=== PATIENT | female | born 1980 | race Caucasian/White ===

== ENCOUNTER → 2020-02-06 | Outpatient (CLI) | payer OTHER, SELFPAY | END | disposition home or self-care (01) | PROVIDERS: PCP Family Medicine; Referring Provider Family Medicine; Visit Provider Family Medicine | DX: Z03.818 Encounter for observation for suspected exposure to other biological agents ruled out (principal) | CPT/HCPCS: 87635; G2023; U0004 ==

== ENCOUNTER → 2022-12-28 | Outpatient (CLI) | payer SELFPAY ==
--- NOTE | 2022-12-28 09:54 | BI_ITS ---
MAMMOGRAPHY - BILATERAL SCREENING REASON FOR EXAM: Female, 42 years old. Routine annual screening examination. PERTINENT HISTORY: Non-contributory. TECHNIQUE: Digital bilateral breast myesha (3D mammographic acquisition) in the CC and MLO projections. 2-D mediolateral oblique (MLO) and craniocaudad (CC) views of both breasts were obtained. CAD: Full Field Digital Mammography with Computer Added Detection was performed. COMPARISON: None. Baseline examination. FINDINGS: Breast Composition: The breasts are extremely dense, which lowers the sensitivity of mammography. There are no dominant masses or suspicious calcifications. No other significant abnormalities are identified. BI/SCRN MAMM (CAD)W/MYESHA BILAT IMPRESSION: Negative screening mammogram. Yearly followup mammogram recommended. (A) ASSESSMENT CATEGORY: BIRADS Category 1: Negative. A letter regarding these results will be sent to the patient by the facility within 30 days. Approximately 10% of breast cancers are not detected by mammography. A normal mammogram should not delay biopsy of a clinically suspicious abnormality. [id number] Electronically Signed: Victorino Wheat MD at 11:14 EDT ,
== END | disposition home or self-care (01) ==
PROVIDERS: PCP Nurse Practitioner Family; Referring Provider Advanced Practice Midwife; Visit Provider Advanced Practice Midwife
DX: Z12.31 Encounter for screening mammogram for malignant neoplasm of breast (principal)
CPT/HCPCS: 77063; 77067

== ENCOUNTER 2025-03-30 04:26 | Emergency (ER) | payer OTHER, SELFPAY ==
[2025-03-30 04:27] VITALS: BP 133/105; PULSE 88; RESP 16; TEMP 37; O2SAT 98; BMI 28.1
--- NOTE | 2025-03-30 04:48 | CT_ITS ---
PROCEDURE: ABDOMEN/PELVIS WITH CONTRAST 03/30/2025 REASON FOR EXAM: RIGHT UPPER QUAD ABDOMINAL PAIN TECHNIQUE: ABDOMEN/PELVIS WITH CONTRAST Coronal and Sagittal reconstruction series were provided. CONTRAST: Isovue 370 VOLUME: 100 mL Oral contrast material was also administered. One or more dose reduction techniques were used (e.g., Automated exposure control, adjustment of the mA and/or kV according to patient size, use of iterative reconstruction technique. RADIATION DOSE SUMMARY: DLP: 700 mGycm COMPARISON: None. FINDINGS: Lung bases: Bibasilar atelectasis. Liver: The liver is normal in size without suspicious hepatic mass. The major portal veins are patent. Minimal biliary ductal dilation. Gallbladder: Marked gallbladder distention with layering dependent stones. There is pericholecystic fluid. Spleen: Normal in size. Pancreas: Unremarkable. No pancreatic ductal dilation. Adrenals: No adrenal mass. Kidneys: No hydronephrosis or nephrolithiasis. Bladder: Distended and unremarkable. Reproductive Organs: Mildly enlarged, globular uterus. Unremarkable ovaries. Bowel: Oral contrast material opacifies the distal small bowel and proximal colon. The bowel loops are nondilated. No ascites or pneumoperitoneum. Normal appendix. Lymph nodes: No suspicious lymph node enlargement. Vasculature: The abdominal aorta and IVC are normal. Bones: Minimal thoracolumbar spondylosis. CT/Abdomen/Pelvis WITH Contrast IMPRESSION: Acute cholecystitis. Reading Location: [id number]
[2025-03-30 05:00] LABS: Hematocrit 36.7 % (37-47); Hemoglobin 13.2 g/dL (12.0-15.0); Immature Granulocytes Count 0.010 X10^3/uL (0.0-0.0); Mean Corp Hgb Conc 36.0 g/dL (32-36); Mean Corpuscular Volume 87.4 fL (81-99); Mean Platelet Vol. 8.7 fl (6.2-12.0); NRBC Flagged by Analyzer 0 % (0-5); Platelet Count 254 K/mm3 (150-450); RBC Distribution Width CV 12.0 % (11.6-14.6); RBC Distribution Width SD 38.6 fl (35.1-43.9); Red Blood Count 4.20 M/mm3 (4.2-5.4); White Blood Count 6.4 K/mm3 (4.4-11.0)
--- NOTE | 2025-03-30 05:00 | EX.ED.DYSGE1 ---
HPI History of Present Illness Chief Complaint: Abd Pain Narrative Narrative: Chief complaint and HPI: Right upper quadrant abdominal pain. 45-year-old female with past medical history of biliary colic and cholelithiasis presents for evaluation of right upper quadrant abdominal pain. Patient states that she has had multiple episodes of biliary colic in the past. States she had an outpatient ultrasound that showed cholelithiasis. She has not followed up with a general surgeon. Patient states yesterday she ate pizza. 2 hours later developed right upper quadrant abdominal pain. Associated symptoms nausea. Patient states pain improved on transit to the emergency department. She denies any fever, chills, shortness of breath, chest pain, vomiting. Review of systems: See HPI Medications: As listed on the chart Allergies: As listed on the chart PFSH: Per chart Vital signs: As listed on the chart. Reviewed. Physical exam: Gen: A&O x3, NAD Head: Normocephalic, atraumatic Eyes: No sclera icterus, conjunctiva clear ENT: Moist mucous membranes Neck: Trachea midline, No JVD CV: RRR, no murmurs, no peripheral edema Resp: Lungs CTA BL, no w/r/c GI: Abd soft, non-distended, tender to palpation in the right upper quadrant, negative Tran sign, no r/r Musc: Full ROM, no deformity Skin: Warm, dry Neuro: Alert, oriented, grossly intact, sensation intact Psych: Cooperative, appropriate mood and affect [facility] Medical History (Updated 03/30/25 @ 07:[address] Elmer Lambert, DO) Anxiety Home Medications ?Medication ?Instructions ?Recorded ?Last Taken ?Type sertraline 50 mg tablet (Zoloft) 50 mg PO DAILY 03/30/25 Unknown History Allergy/AdvReac Type Severity Reaction Status Date / Time No Known Allergies Allergy Verified 03/30/25 04:32 Social History Smoking Status: Never smoker EXAM Physical Exam Const Vital Signs: 03/30/25 04:27 03/30/25 05:50 03/30/25 06:22 Temperature 98.6 F Temperature Source Oral Pulse Rate 88 70 96 Respiratory Rate 16 16 16 Blood Pressure 133/105 H 144/88 H 136/86 H Blood Pressure Mean 114 106 102 Pulse Ox 98 100 100 Oxygen Delivery Method Room Air Room Air Room Air MDM MDM MDM Narrative Medical decision making narrative: 45-year-old female with past medical history of biliary colic and cholelithiasis presents for evaluation of right upper quadrant abdominal pain. Has a past medical history of biliary colic and cholelithiasis. Differential diagnosis includes but is not limited to cholelithiasis, biliary colic, acute cholecystitis, cholangitis, pancreatitis. Patient states her pain has improved prior to arrival. She declined pain and nausea medicine. Although ultrasound is the best test to assess for gallbladder pathology I do not have that is available in our emergency department therefore CT abdomen pelvis will be ordered with laboratory workup. CBC without leukocytosis or anemia. Platelets unremarkable. BMP unremarkable. Hepatic panel unremarkable. Lipase unremarkable. CT abdomen pelvis pending at this time. Patient signed out to oncoming physician, Dr. Patton. He will wait results. Impression: 1. Right upper quadrant abdominal pain 2. History of cholelithiasis with biliary colic Lab Data Labs: Laboratory Results - last 24 hr 03/30/25 04:30 WBC 6.4 RBC 4.20 Hgb 13.2 Hct 36.7 L MCV 87.4 MCH 31.4 MCHC 36.0 RDW Std Deviation 38.6 RDW Coeff of Nikhil 12.0 Plt Count 254 MPV 8.7 Immature Gran % (Auto) 0.200 Neut % (Auto) 68.4 Lymph % (Auto) 19.2 [place] % (Auto) 10.8 H Eos % (Auto) 1.1 Baso % (Auto) 0.3 Absolute Neuts (auto) 4.4 Absolute Lymphs (auto) 1.22 Nucleated RBC % 0 Sodium 136 Potassium 3.6 Chloride 101 Carbon Dioxide 23.5 Anion Gap 11 BUN 12 Creatinine 0.81 Estim Creat Clear Calc 80.28 Est GFR (MDRD) Non-Af 91 BUN/Creatinine Ratio 14.5 Glucose 110 H Calcium 9.5 Total Bilirubin 0.26 Direct Bilirubin 0.12 AST 25 ALT 12 Alkaline Phosphatase 52 Total Protein 7.4 Albumin 4.4 Globulin 3.0 Lipase 39 Discharge Plan Triage Chief Complaint: Abd Pain ED Provider: Elmer Lambert Dx/Rx/DC Orders Clinical Impression: Cholelithiasis, Biliary colic Instructions: ED Gallstones with Biliary Colic Prescriptions: No Action sertraline [Zoloft] 50 mg tablet 50 mg PO DAILY Primary Care Provider: Erika Crowell MAKEUP ARTISTRY INSTRUCTOR Referrals: Chetan Dempsey MD [Med Staff - Active Staff] - 3-5 Days Racquel Carolina NP-C [Non-Staff] - 3-5 Days Activity Restrictions/Additional Instructions: Refrain from fatty, fried, spicy foods. Follow-up with general surgery and primary care physician. Return back to the ED if symptoms change or worsen. Print Language: Turkmen Disposition Disposition: Home, Self Care
[2025-03-30] MEDS: 0.9% Normal Saline (1000mL) 1,000 ML 999 ML IV (05:01)
[2025-03-30 05:24] LABS: AST(SGOT) 25 U/L (<=31); Alanine Aminotransfer ALT/SGPT 12 U/L (<=34); Albumin, Serum 4.4 g/dL (3.5-5.0); Alkaline Phosphatase 52 U/L (35-104); Anion Gap 11 (5-15); BUN 12 mg/dL (4-19); BUN/Creat Ratio 14.5 RATIO (10-20); Bilirubin, Direct 0.12 mg/dL (0.00-0.30); Calcium,Total 9.5 mg/dL (7.6-11.0); Carbon Dioxide 23.5 mmol/L (21.0-32.0); Chloride 101 mmol/L (98-108); Estimated Creatinine Clearance 80.28 ml/min (50-250); Globulin 3.0 g/dL (2.2-4.2); Glucose 110 mg/dL (70-99); Lipase 39 U/L (13-75); Potassium 3.6 mmol/L (3.3-5.1)
--- OUTSIDE RECORDS SUMMARY | 2025-03-30 05:39 | XMS RPT_ITS | CCD ---
Author Organization [facility] Care Team Providers Care Recordist Name Role Phone Dr. Alf Ferrell Primary Care Provider [phone] Dr. Alf Ferrell Referring Provider CORINNE Sheets Attending Provider Alf Ferrell Referring Unavailable Alf Ferrell Primary Care Unavailable Verónica Sheets Attending Unavailable Racquel Carolina Primary Care Unavailable Verónica Sheets Referring Unavailable Verónica Sheets Attending Unavailable Problems Problem Classification Problem Date Documented Da te Episodic/Chronic Other screening for suspected conditions (not mental disorders or infectious disease) (4 sources) Patient encounter status; Translations: [Encounter for other screening for malignant neoplasm of breast] Onset: 01-03-2023 12-28-2022 Episodic Results Test Name Value Interpretation Reference Range Facil ity Manager Purchasing Office Visit Reporton 12-28-2022 Manager Purchasing Office Visit Report [facility] [address] [place], [place] [address] OFFICE VISIT Date of Service: 12/28/22 MR#: [id number] Acct: [id number] Name: CHINYERE ESTEBAN Rep #: [id number] : 1980 Provider: CORINNE French ams Age/Sex: 42/F Location: [facility] Status: Signed Intake Intake Visit Reasons: MAMM EVENT HPI MAMM EVENT Details: CHINYERE ESTEBAN is a 42 year old who presents for mammogram screening ROS Const Constitutional: Reports system reviewed and no additional complaints, except as documented Resp Resp: Reports system reviewed and no additional complaints, except as documented GI GI: Reports system reviewed and no additional complaints, except as documented : Reports system reviewed and no additional complaints, except as documented Musc Musc: Reports system reviewed and no additional complaints, except as documented Skin Skin/Breast: Reports system reviewed and no additional complaints, except as documented Psych Psych: Reports system reviewed and no additional complaints, except as documented Exam Const General: cooperative, healthy appearing and comfortable Neck Neck: normal visual inspection and full ROM Chest Chest palpation inspection: normal inspection of the chest and normal palpation of entire chest wall Breast inspection: normal inspection of the breasts and normal inspection of the axillae Breast palpation: normal palpation of the breasts and normal palpation of the axillae Resp Effort Inspection: normal respiratory effort and able to speak in complete sentences Psych Appearance: grossly normal Mental Status: mental status grossly normal Mood: congruent mood Affect: normal affect Coding Level of Care Code Attention Industrial Analyst Diagnoses Screening breast examination Z12.39 Assessment and Plan Assessment and Plan (1) Screening breast examination: Status: Acute Orders: Orders SCRN MAMM (CAD)W/MYESHA BILAT Today Z12.39 - Encounter for other screening for malignant neoplasm of breast 12/28/22 0950 Date Verónica Sheets CNM Cosigner Signature: Date (if applicable) CC: Normal [facility] SCRN MAMM (CAD)W/MYESHA BILATo n 12-28-2022 SCRN MAMM (CAD)W/MYESHA BILAT [facility] Imaging Services [address] [place] [address] SCRN MAMM (CAD)W/MYESHA BILAT MR#: [id number] Acct: [id number] Name: CHINYERE ESTEBAN Rep #: [id number] : 1980 F 42 From: Victorino klein MD PCP: DEBRA Vernon Status: REG CLI Study: SCRN MAMM (CAD)W/MYESHA BILAT Date of Exam: 12/11 05/04 Exam# [id number] Ordering Dr: Verónica Sheets CNM MAMMOGRAPHY - BILATERAL SCREENING REASON FOR EXAM: Female, 42 years old. Routine annual screening examination. PERTINENT HISTORY: Non-contributory. TECHNIQUE: Digital bilateral breast myesha (3D mammographic acquisition) in the CC and MLO projections. 2-D mediolateral oblique (MLO) and craniocaudad (CC) views of both breasts were obtained. CAD: Full Field Digital Mammography with Computer Added Detection was performed. COMPARISON: None. Baseline examination. FINDINGS: Breast Composition: The breasts are extremely dense, which lowers the sensitivity of mammography. There are no dominant masses or suspicious calcifications. No other significant abnormalities are identified. BI/SCRN MAMM (CAD)W/MYESHA BILAT IMPRESSION: Negative screening mammogram. Yearly followup mammogram recommended. (A) ASSESSMENT CATEGORY: BIRADS Category 1: Negative. A letter regarding these results will be sent to the patient by the facility within 30 days. Approximately 10% of breast cancers are not detected by mammography. A normal mammogram should not delay biopsy of a clinically suspicious abnormality. [id number] Electronically Signed: Victorino Wheat MD at 11:14 EDT , CC: CORINNE Sheets; DEBRA Carolina Tractor Expert: Signed Normal [facility] Encounters Encounter Date Encounter Type Care Provider Facility Start: 12-28-2022 End: 12-28-[address] Alf Ferrell Work Phone: [facility] Start: 12-28-2022 End: 12-29-[address] Alf Ferrell Work Phone: [facility] Work Phone: Start: 12-28-2022 End: 12-28-[address] Alf Ferrell Work Phone: [facility] Procedures Date Procedure Procedure Detail Performing Clinician Start: 12-28-2022 Screening mammography Юлия Ferrell Work Phone: Payers Date Payer Category Payer Unknown 2022 Self-pay [id number] 2022 Unknown 0 [id number] 1 Unknown [facility] . [id number] d Unknown [id number] Unknown [id number] Social History Date Type Detail Facility Tobacco smoking stat [facility] Unknown if ever smoked [facility] Work Phone: Start: 1980 Sex Assigned At Female W [facility] Evaluation note Note Date & Type Note Facility Evaluation note Diagnosis Onset Date Screening breast examination acute [facility] Work Phone: Chief Complaint and Reason for Visit Chief Complaint MAMM EVENT SCREENING Reason for Visit Screening breast exa mination Summary Purpose Family History No Family History Records Found Advance Directives No Advanced Directives Records Found Additional Source Comments Care Teams (unrecognized sec tion and content) Team Status: Active Member Role Status Dates DEBRA Vernon Primary Care Provider Active Team Status: Inactive Member Role Status Dates Dr. Alf Ferrell , Primary Care Provider, Referring Provider Active Verónica Sheets CNM Attending Provider Active Team Status: Inactive Member Role Status Dates DEBRA Vernon Primary Care Provider Active Verónica Sheets CNM Attending Provider, Referring Pro vider Active Goals (unrecognized section and content) Goals may be documented in a n alternate section INFORMATION SOURCE (unrecogn ized section and content) DATE CREATED AUTHOR 01/21/2023 [facility] FOR RECORDS PERTAINING TO PATIENTS WHO ARE OR HAVE BEEN ENROLLED IN A CHEMICAL DEPENDENCY/SUBSTANCEABUSE PROGRAM, SOME INFORMATION MAY BE OMITTED. This clinical summary was aggregated from multiple sources. Caution should be exercised in using it in the provision of clinical care. This summary normalizes information from multiple sources, and as a consequence, information in this document may materially change the coding, format and clinical context of patient data. In addition, data may be omitted in some cases. CLINICAL DECISIONS SHOULD BE BASED ON THE PRIMARY CLINICAL RECORDS. [facility]. provides no warranty or guarantee of the accuracy or completeness of information in this document.
[2025-03-30 05:50] VITALS: BP 144/88; PULSE 70; RESP 16; O2SAT 100
[2025-03-30 06:22] VITALS: BP 136/86; PULSE 96; RESP 16; O2SAT 100
[2025-03-30 08:00] VITALS: BP 120/71; PULSE 85; RESP 16
[2025-03-30 08:46] VITALS: BP 123/77; PULSE 77; RESP 16; TEMP 36.3; O2SAT 99
== END 2025-03-30 08:46 | disposition home or self-care (01) ==
PROVIDERS: Emergency Provider Surgery; PCP Nurse Practitioner Family; Visit Provider Surgery
DX: R10.11 Right upper quadrant pain (principal); K80.50 Calculus of bile duct without cholangitis or cholecystitis without obstruction; K80.20 Calculus of gallbladder without cholecystitis without obstruction; F41.9 Anxiety disorder, unspecified; Z79.899 Other long term (current) drug therapy
CPT/HCPCS: 74177; 80048; 80076; 83690; 85025; 96360; 99283; Q9967; A4216

== ENCOUNTER 2025-04-08 10:31 | Day surgery (SDC) | payer SELFPAY, OTHER ==
[2025-04-08] VITALS (10 sets, daily range): BP systolic 102–162; BP diastolic 59–111; PULSE 83–97; RESP 14–16; TEMP 36.1–37.2; O2SAT 92–100; BMI 27.0
--- NOTE | 2025-04-08 10:46 | EKG12_ITS ---
Test Reason : PREOP Blood Pressure : */* mmHG Vent. Rate : 91 BPM Atrial Rate : 91 BPM P-R Int : 140 ms QRS Dur : 86 ms QT Int : 346 ms P-R-T Axes : 44 50 11 degrees QTcB Int : 425 ms Normal sinus rhythm Normal ECG No previous ECGs available Confirmed by AGUEDA GARRIDO, CAROLA ([id number]), loan expeditor ABEBA OAKLEY ([id number]) on 04/09/2025 1:07:23 PM Referred By: Chetan Dempsey Confirmed By: CAROLA ROMEO MD
--- NOTE | 2025-04-08 10:46 | PCM.PRE.AN2 ---
ASA Classification* ASA Classification ASA Classification: 2 Assessment & Plan Anesthesia* Anesthesia Assessment Anesthesia Assessment: Discussed sedation and/or anesthesia options, risks, benefits, and alternatives with patient/parents/legal guardian/POA. Questions invited. The patient/parents/legal guardian/POA seems to understand and agrees to proceed with anesthesia plan. Reviewed the physical assessment, medical history, allergy history and patient home medications list prior to surgery/procedure/anesthetic and documented any changes. Performed airway and anesthesia risk assessments. Anesthesia Type Anesthesia Type: General Anesthesia Focused Assessment* Airway Assessment Mouth opens: >3 cm Mallampati Score: II Labs Anesthesia Preop lab: CBC WBC 6.4 K/mm3 (4.4-11.0) 03/30/25 04:30 03/30/25 RBC 4.20 M/mm3 (4.2-5.4) 03/30/25 04:30 03/30/25 Hgb 13.2 g/dL (12.0-15.0) 03/30/25 04:30 03/30/25 Hct 36.7 % (37-47) L 03/30/25 04:30 03/30/25 Plt Count 254 K/mm3 (150-450) 03/30/25 04:30 03/30/25 CHEMISTRY Potassium 3.6 mmol/L (3.3-5.1) 03/30/25 04:30 03/30/25 Sodium 136 mmol/L (133-145) 03/30/25 04:30 03/30/25 BUN 12 mg/dL (4-19) 03/30/25 04:30 03/30/25 Creatinine 0.81 mg/dL (0.70-1.20) 03/30/25 04:30 03/30/25 Glucose 110 mg/dL (70-99) H 03/30/25 04:30 03/30/25 COAG Pre-Assessment Diagnosis/Proposed Procedure Planned Operative Procedure(s): ROBOTIC LAPAROSCOPIC CHOLESYECTOMY WITH GRAMS Anesthesia History Anesthesia History - bond writer: Anesthesia History - bond writer Hx Hospitalization No 04/04/25 10:36 Any Problems With Anesthesia No 04/04/25 10:36 Cholinesterase deficiency No 04/04/25 10:36 You/Your Family Experience No 04/04/25 10:36 fever (hyperthermia) with Relationship Recent Exposure to Contagious Disease Does patient have nerve No 04/04/25 10:36 stimulator Patient instructed to have device shut off --Does patient have Pacemaker or ICD? When Was Last Pacemaker Check QUESTION #4 FULL TEXT: You/Your Family Experience fever (hyperthermia) with Anesthesia Last Oral Intake Last Oral intake: Last Oral Intake NPO since Meds taken in AM with sips of water? Meds patient instructed to take am of surgery PONV PONV - bond writer: PONV - bond writer Female Yes 04/04/25 10:36 HX of Motion Sickness Yes 04/04/25 10:36 HX of N/V After Surgery No 04/04/25 10:36 Non-Smoker Yes 04/04/25 10:36 Duration of Surgery greater Yes 04/04/25 10:36 than 60 minutes Number of Risk Factors 4 04/04/25 10:36 PONV Score Severe Risk 04/04/25 10:36 Height & Weight Height & Weight: Anesthesia: Height & Weight Height 5 ft 2 in 04/03/25 14:13 Respiratory Assessment Respiratory Assessment - bond writer: Respiratory Tract Infection Hx - bond writer Hx Respiratory Tract Infection No 04/04/25 10:36 STOP Sleep Apnea STOP Sleep Apnea - bond writer: STOP Sleep Apnea - bond writer Hx Hypertension No 04/04/25 10:36 Hx Sleep Apnea No 04/04/25 10:36 CPAP BIPAP Do you snore loudly (louder No 04/04/25 10:36 than talking or can be heard Do you often feel tired/ No 04/04/25 10:36 fatigued/ sleepy during daytime? Has anyone observed you stop No 04/04/25 10:36 breathing during sleep? STOP Results Negative 04/04/25 10:36 QUESTION #5 FULL TEXT : Do you snore loudly (louder than talking or can be heard through closed doors)? Tobacco Use History Tobacco Use History - bond writer: Tobacco Use History - bond writer Tobacco Use Smoking Status Never smoker 04/04/25 10:36 Hx Tobacco Use No 04/04/25 10:36 Years Smoking Packs Smoked per Day Smoking Cessation Date was within the last 15 years Hx Smoking Cessation Date Hx Smoking Cessation Counseling Hematologic Medial History Hematologic Hx - bond writer: Hematologic Medical Hx - broommaker Hx of Blood Transfusion No 04/04/25 10:36 Hx of Transfusion in last 3 No 04/04/25 10:36 Months Date of Last Transfusion (if within last 3 months) Ever experience any problems No 04/04/25 10:36 with transfusion(s)? Specify any problems Hx of Preganancy in last 3 No 04/04/25 10:36 Months Nurse Filling Out Transfusion [email or web address] 04/04/25 10:36 & Questions: Date: 04/04/25 04/04/25 10:36 Time: 10:40 04/04/25 10:36 Patient unable to answer at this time (ie. confused, unrespo /Reproduction History /Reproductive History - bond writer: /Reproductive Hx- bond writer Hx Now No 04/04/25 10:36 Gestational Age (in weeks): EDC: Hx Hx Para Hx Section SAB No 04/04/25 10:36 Active Medications Active Medications: Current Medications Generic Name Dose Route Start Last Admin Trade Name Freq PRN Reason Stop Dose Admin Cefazolin Sodium 2 gm/ Sodium 110 mls @ 200 mls/hr 04/08/25 12:00 Chloride IV 04/08/25 12:32 INTRAOP ONE Indocyanine Green 3.75 mg/ N/A 1.5 mls @ 999 mls/hr 04/08/25 12:00 IV 04/08/25 12:01 PREOP ONE Lactated Ringer's 1,000 mls @ 15 mls/hr 04/08/25 10:45 IV .Q48H TREY Lactated Ringer's 1,000 mls @ 15 mls/hr 04/08/25 10:45 IV .Q48H TREY PFSH Medical History Wears glasses Migraine headache Gallstones Anxiety Home Medications ?Medication ?Instructions ?Recorded ?Last Taken ?Type sertraline 50 mg tablet (Zoloft) 50 mg PO DAILY 03/30/25 Unknown History multivitamin (Daily Multi-Vitamin 1 tab PO DAILY 04/04/25 Unknown History tablet) omega 5-vqy-ctq-fish oil 1,200 mg 1 cap PO DAILY 04/04/25 04/03/25 History (144 mg-216 mg) capsule (Fish Oil) Allergy/AdvReac Type Severity Reaction Status Date / Time No Known Allergies Allergy Verified 04/04/25 10:33 Surgical History S/P section Social History Smoking Status: Never smoker alcohol intake: never Review of Systems (Anesthesia) ROS Narrative System reviewed and no additional complaints, except as documented.
[2025-04-08] MEDS: Lactated Ringers 1,000 ML 15 ML IV (10:55)
[2025-04-08] MEDS: INDOCYANINE GREEN 3.75 MG in Syringe 1.5 ML 999 MG IV (10:56)
--- NOTE | 2025-04-08 11:22 | PCM.HP.STD ---
HPI - General General Date of Admission: 04/08/25 Date of Service: 04/08/25 Chief Complaint: Symptomatic cholelithiasis HPI Narrative CHINYERE ESTEBAN, is a 45 F who presents for elective robotic cholecystectomy [facility] Medical History Wears glasses Migraine headache Gallstones Anxiety Home Medications ?Medication ?Instructions ?Recorded ?Last Taken ?Type sertraline 50 mg tablet (Zoloft) 50 mg PO DAILY 03/30/25 04/08/25 08:00 History multivitamin (Daily Multi-Vitamin 1 tab PO DAILY 04/04/25 Unknown History tablet) omega 0-svk-lmr-fish oil 1,200 mg 1 cap PO DAILY 04/04/25 04/03/25 History (144 mg-216 mg) capsule (Fish Oil) Allergy/AdvReac Type Severity Reaction Status Date / Time No Known Allergies Allergy Verified 04/08/25 10:54 Surgical History S/P section Social History Smoking Status: Never smoker alcohol intake: never Vital Signs Vital Signs Vital Signs: 04/08/25 10:57 04/08/25 10:57 Temperature 99 F Temperature Source Temporal Pulse Rate 96 Respiratory Rate 16 Respiratory Pattern Normal Blood Pressure 126/84 H Blood Pressure Mean 98 Blood Pressure Source Monitor Blood Pressure Position Semi-Fowlers Blood Pressure Location Left Arm Pulse Ox 100 Oxygen Delivery Method Room Air Weight Weight: 147 lb 11.355 oz Body Mass Index (BMI) 27.0 Physical Exam Const alert, oriented x3 and no apparent distress Assessment & Plan Assessment/Plan (1) Gallstones: PLAN: Plan Plan is for robotic cholecystectomy with ICG cholangiograms today Charges/Coding Visit Charges Inpatient E&M: 70740 Init Hosp L2
[2025-04-08 11:48] LABS: Internal QC Validated? YES +Cl - CLEAR BKGD; Pregnancy, Urine Negative Negative; Record Kit Lot#,Urine Preg 962302
--- NOTE | 2025-04-08 12:00 | GALL_PTH ---
PATIENT: CHINYERE ESTEBAN LOC: [facility] – [place] U#:[id number] AGE/SX: 45/F ROOM: RE04/08/[address]: Dr. Chetan Dempsey MD : 1980 BED: DIS: 04/08/2025 SPEC #: [id number] RECD: 04/08/25 13:45 STATUS: THEODORE REMagdalena #: [id number] PEDRO: 04/08/25 12:[address]: Chetan Dempsey DEPT: SURGICAL PATHOLOGY RECD BY: Reginaldo Flores ENTERED: 04/08/25 14:41 SP TYPE: ANETA PERDOMO DR: Erika Crowell, BELLMAKER-C Tissues: A - Gallbladder, NOS Procedures: Surgery Specimen Level III HEADER OPERATION: Robotic cholecystectomy with grams PRE-OP DIAGNOSIS: Gallstones TISSUE SUBMITTED: A- Gallbladder MICROSCOPIC DIAGNOSIS A. Gallbladder, gallstones, cholecystectomy: - Chronic cholecystitis with cholelithiasis - see note. Note: Much of the surface epithelium has autolyzed. MICROSCOPIC DESCRIPTION Slides are reviewed. GROSS DESCRIPTION A. Received in formalin labeled with the patient's name and date of . Designated as gallbladder is a 7.4 x 3.9 x 2.6 cm ramos-pink, focally edematous and intact gallbladder with attached patent cystic duct (inked black, shaved). A lymph node is not present. Opening reveals minimal bile and innumerable, pigmented choleliths, ranging <0.1 cm to 0.4 cm. The mucosa is ramos-yellow to red, granular and trabeculated with a maximum wall thickness of 0.2 cm. Cholesterolosis is not present. Hog Sticker sections are submitted in 1 cassette. CA 04/08/2025 CPT:63948
[2025-04-08] MEDS: Bupiv/Epi 0.25% 30 ML Vial (13:17)
--- NOTE | 2025-04-08 13:26 | DCINST_ITS ---
Discharge Instructions Diet Discharge Diet: Light diet - advance as tolerated Activity Discharge Activity: Return to Normal Activity and May Shower Return to work on:: 04/08/25 May shower in (days): 1 Ice area for (Minutes): 30 Lifting Restrictions: No lifting pushing or pulling more than 20 pounds for 4 weeks Dressing / Incision Call your doctor if your incision/area has: Continuous Slow Oozing, Sudden Increased Bleeding, Increased Pain/ Swelling, Increased Redness, Foul Smelling Discharge and Swelling at the incision site Call your doctor if you observe: Fever of 101 or Higher Remove Dressing in: leave until fall off Cleanse incision/area with: Soap & Water Follow Up Care Please Follow Up With: Chetan Dempsey MD When: 2 weeks. Please call office to schedule appointment Test Results: Test results from this visit will be discussed in further detail at your follow- up appointment, if applicable. Discharge Plan Admission Primary Reason for Your Visit: Robotic cholecystectomy Attending Provider: Chetan Dempsey Primary Care Provider: Erika Crowell NP Instructions Print Language: Cymraes Discharge Orders/Prescriptions Prescriptions: New oxycodone 5 mg tablet 5 mg PO Q8H PRN (Reason: pain) 3 Days Qty: 10 0RF Continued sertraline [Zoloft] 50 mg tablet 50 mg PO DAILY multivitamin [Daily Multi-Vitamin] Tablet 1 tab PO DAILY omega 8-fun-uud-fish oil [Fish Oil] 1,200 (144-216) mg capsule 1 cap PO DAILY Referrals / Follow Up: Erika Crowell NP, WATER SOFTENER SERVICE SUPERVISOR-C [Primary Care Provider] - Disposition Disposition (needs filled in before D/C Order can be placed): Home, Self Care
--- NOTE | 2025-04-08 13:30 | OP.PCM_ITS ---
Problems Associated Problem List Diagnoses (1) Gallstones: Procedures Digestive 40xxx-49xxx: 87756 Laparo cholecystectomy/graph Operative Report (Standard) Operative Information Date of Procedure: 04/08/25 Pre-Operative Diagnosis: Chronic cholecystitis/cholelithiasis Post-Operative Diagnosis: Same Surgery/Procedure Performed: Robotic cholecystectomy with ICG cholangiogram art handler: Yes Termite Inspector: Corby Lucio Tasks completed by child care center assistant director: Closing, Trocar and Other Additional higher level teaching assistant?: No Type of Anesthesia: General and Local RN Documented Start/Stop Times: Operation Date: 04/08/25 12:00 Case Time Into Pre-Op 04/08/25 10:43 Anesthesia Start 04/08/25 11:59 Into Room 04/08/25 11:59 Procedure Start 04/08/25 12:17 Procedure End 04/08/25 13:28 Procedure Start Time: 12:17 Procedure Stop Time: 13:28 Select all DRAINS/GRAFTS/IMPLANTS that apply: None Estimated Blood Loss: Minimal Specimen collected: Yes Description of specimen(s) removed: Gallbladder Description of surgery: The patient is a 45-year-old female who was recently seen through the emergency room and then later in my office with complaints of right upper quadrant pain and gallstones symptoms were consistent with biliary colic. I offered her a robotic cholecystectomy as treatment. We discussed the details of the planned procedure including the risks benefits and alternatives. She wished to proceed. She was brought the operative room today following informed consent. She was placed supine on the operative table with arms comfortably tucked at her side. Her abdomen was prepped and draped in the usual sterile manner. A 5 mm incision was made just below the umbilicus. This was placed without difficulty. This was placed optically. Once in place the abdomen is then fully insufflated with CO2 gas. A 5 mm 0 degree scope was inserted. There were no signs of bowel or vascular injury. Next an 8 mm trocar was placed on the right side of the abdomen under direct visualization. 2 additional 8 mm trocars were placed in the left side of the abdomen. Next the original 5 mm trocar was switched to another 8 mm trocar. Patient was then placed in mild reverse Trendelenburg positioning with some roll to the left to improve exposure. The da Fernando robot was then brought onto the operative field and all trocars were appropriately docked. The instruments were inserted. The gallbladder was identified and was reflected up and over the liver. It was markedly distended. There was some mild wall thickening to the gallbladder as well. There were some adhesions to the undersurface of the gallbladder. These were taken down using electrocautery and the J-hook. The peritoneum on either side of the gallbladder was then incised using hook electrocautery. The infundibulum the gallbladder was then dissected out. The cystic duct and cystic artery were both dissected out. ICG cholangiogram was visualized/utilized and confirmed appropriate identification of the cystic duct. The lower third of the gallbladder was dissected off the liver in order to achieve a critical view of safety such that 2 and only 2 structures were seen going to the gallbladder. That being the cystic duct and cystic artery. Both were clipped and transected. The gallbladder was then cauterized off of the undersurface of the liver. There was no spillage of bile. Once freed the gallbladder was placed in Endobag. In order to get the gal lbladder into the bag all of the bile needed to be aspirated using an aspirating needle. This still left a large collection of gallstones. The gallbladder was then brought out through the umbilical site. The fascia was then closed using 0 Maxon with the aid of the fascial closure device. This reapproximated the fascia nicely. The remaining trocars were opened up and insufflation was allowed to escape. Hemostasis was excellent. Local anesthetic was injected into each of the incisions. The incisions were then closed with 4-0 Vicryl. Skin glue was applied as dressing. She was awakened from anesthesia and taken to recovery in good condition. Surgical Findings: Very dilated gallbladder with mild wall thickening Complications Complications: No Admit VTE Documentation VTE Present on Admission: No VTE Mechan Device Prophylaxis: SCD's VTE Pharm Prophylaxis ordered?: No Reason prophylaxis not ordered: Treatment Not Indicated
--- NOTE | 2025-04-08 13:43 | PCM.POST.ANE ---
Anesthesia: Postop Eval I Current Vital Signs Temperature: 97 F Pulse Rate: 97 Blood Pressure: 162/108 Respiratory Rate: 16 Pulse Ox: 92 Oxygen Delivery Method: Nasal Cannula Oxygen Flow Rate (L/min): 4 Assessment Airway patent: Yes Spontaneous unlabored respirations: Yes Mental status: Awake nausea: No Vomiting: No Anesthesia Complication: No Fluid Hydration Crystalloid volume administer (ml): 1,100 Total IV fluid infused: 1,100 Progress Note Anesthesia document: Postop Eval 1 completed: Yes
--- NOTE | 2025-04-08 14:02 | POSTOPAN2_ITS ---
Anesthesia Postop Eval I Sum Postop Eval Completion status Anesthesia document: Postop Eval 1 completed: Yes Anesthesia Postop Eval I Summary Anesthesia Postop Eval I Summary: Anesthesia Postop Eval I: Assessment Summary Airway patent Yes 04/08/25 13:44 [email or web address] Spontaneous unlabored Yes 04/08/25 13:44 [email or web address] [email or web address] respirations Mental status Awake 04/08/25 13:44 [email or web address] [email or web address] nausea No 04/08/25 13:44 [email or web address] [email or web address] Vomiting No 04/08/25 13:44 [email or web address] [email or web address] Anesthesia Postop Eval I: Fluid Summary Crystalloid volume administer 1,100 04/08/25 13:44 [email or web address] [email or web address] (ml) Colloids volume administered ( ml) Blood Product volume administered (ml) Total IV fluid infused 1,100 04/08/25 13:44 [email or web address] [email or web address] Anesthesia Postop Eval I: Summary Notes Anesthesia Complication No 04/08/25 13:44 [email or web address] [email or web address] Anesthesia Complication Comment: Post-operative progress note Anesthesia: Postop Eval II Evaluation Mental status: Awake Pain Level: 1 nausea: No Vomiting: No
--- NOTE | 2025-04-08 14:02 | PCM.POSTANE2 ---
Anesthesia Postop Eval I Sum Postop Eval Completion status Anesthesia document: Postop Eval 1 completed: Yes Anesthesia Postop Eval I Summary Anesthesia Postop Eval I Summary: Anesthesia Postop Eval I: Assessment Summary Airway patent Yes 04/08/25 13:44 [email or web address] Spontaneous unlabored Yes 04/08/25 13:44 [email or web address] respirations Mental status Awake 04/08/25 13:44 [email or web address] nausea No 04/08/25 13:44 [email or web address] Vomiting No 04/08/25 13:44 [email or web address] Anesthesia Postop Eval I: Fluid Summary Crystalloid volume administer 1,100 04/08/25 13:44 [email or web address] (ml) Colloids volume administered ( ml) Blood Product volume administered (ml) Total IV fluid infused 1,100 04/08/25 13:44 [email or web address] Anesthesia Postop Eval I: Summary Notes Anesthesia Complication No 04/08/25 13:44 [email or web address] Anesthesia Complication Comment: Post-operative progress note Anesthesia: Postop Eval II Evaluation Mental status: Awake Pain Level: 1 nausea: No Vomiting: No
== END 2025-04-08 17:34 | disposition home or self-care (01) ==
LOC: SDC 10:33 → AC 10:33
PROVIDERS: Student in an Organized Health Care Education/Training Program; PCP Nurse Practitioner Family; Referring Provider Surgery; Visit Provider Surgery
PROC: 0FT44ZZ Resection of Gallbladder, Percutaneous Endoscopic Approach (ICD-10-PCS; CPT 47562; principal; 2025-04-08 11:40)
DX: K80.10 Calculus of gallbladder with chronic cholecystitis without obstruction (principal); K82.8 Other specified diseases of gallbladder; F41.9 Anxiety disorder, unspecified; Z79.899 Other long term (current) drug therapy
CPT/HCPCS: 47563; S2900; 00790; 81025; 88304; 93005; J2405